=== PATIENT | female | born 1990 | race Two or more races ===

== ENCOUNTER 2018-01-28 14:32 | Inpatient (IN) | payer OTHER ==
[2018-03-02] MEDS ORDERED: LIDOCAINE 1% (MPF) 30 ML INJ INJ (05:30)
[2018-03-02] MEDS ORDERED: IBUPROFEN 600 MG TAB PO (05:30)
[2018-03-02] MEDS ORDERED: BUTORPHANOL 2 MG INJ IV (05:30)
[2018-03-02] MEDS ORDERED: METHYLERGONOVINE 0.2 MG INJ IM (05:30)
[2018-03-02] MEDS ORDERED: CARBOPROST 250 MCG INJ IM (05:30)
[2018-03-02] MEDS ORDERED: OXYTOCIN 30 UNITS/LR 500 ML IV ×2 (05:30)
[2018-03-02] MEDS ORDERED: MISOPROSTOL 200 MCG TAB PR (05:30)
[2018-03-02 06:57] LABS: ADD MAN DIFF? NO
[2018-03-02 07:00] LABS: BASOPHILS % 0.3 % (0.0-2.0); EOSINOPHILS # 0.1 10^3/ul (0.0-0.5); EOSINOPHILS % 1.3 % (0.0-7.0); HEMATOCRIT 33.6 % (37.0-47.0); HEMOGLOBIN 11.3 g/dl (12.0-16.0); LYMPHOCYTES # 2.9 10^3/ul (0.8-2.9); LYMPHOCYTES % 29.6 % (15.0-51.0); MEAN CORPUSCULAR HEMOGLOBIN 30.6 pg (29.0-33.0); MEAN CORPUSCULAR HGB CONC 33.6 g/dl (32.0-37.0); MEAN CORPUSCULAR VOLUME 91.1 fl (82.0-101.0); MEAN PLATELET VOLUME 11.8 fl (7.4-10.4); MONOCYTE # 0.7 10^3/ul (0.3-0.9); MONOCYTES % 6.7 % (0.0-11.0); NEUTROPHILS % 61.3 % (39.0-77.0); PLATELET COUNT 149 10^3/UL (140-415); RED BLOOD COUNT 3.69 10^6/ul (4.20-5.40); RED CELL DISTRIBUTION WIDTH 13.4 % (11.5-14.5)
[2018-03-02 07:00] LABS: WHITE BLOOD COUNT 9.8 10^3/ul (4.8-10.8)
[2018-03-02] MEDS: LACTATED RINGER'S 1,000 ML IV (07:28)
[2018-03-02] MEDS: LACTATED RINGER'S 1,000 ML IV* ×3 (07:28→18:59)
[2018-03-02 07:49] LABS: INR 0.91; PROTIME 12.3 Sec (11.9-14.9)
[2018-03-02 07:50] LABS: PARTIAL THROMBOPLASTIN TIME 25.8 Sec (25.0-35.0)
[2018-03-02] MEDS ORDERED: HYDROmorphONE 0.5 MG/0.5 ML SYG IV ×2 (08:30)
[2018-03-02] MEDS ORDERED: NALOXONE (0.4 MG/ML) INJ IV (08:30)
[2018-03-02] MEDS ORDERED: DIPHENHYDRAMINE 50 MG INJ IV (08:30)
[2018-03-02] MEDS ORDERED: KETOROLAC 30 MG INJ IV (08:30)
[2018-03-02] MEDS ORDERED: ZOLPIDEM 5 MG TAB PO (08:30)
[2018-03-02 08:33] LABS: HEPATITIS B SURFACE ANTIGEN NEGATIVE (NEGATIVE)
[2018-03-02] MEDS: FENTAnyl 2MCG/ML-ROPIV 0.2% 100 ML BAG EPI ×2 (11:21→17:36)
[2018-03-02] MEDS: OXYTOCIN 30 UNITS/LR 500 ML IV (15:15)
[2018-03-02] MEDS: ONDANSETRON 4 MG INJ IV (19:06)
[2018-03-02] MEDS: MINERAL OIL LIGHT 10 ML VIAL TOP (21:30)
[2018-03-02 21:47] LABS: RAPID PLASMA REAGIN NONREACTIVE (NR)
[2018-03-03] MEDS ORDERED: LACTATED RINGER'S 1,000 ML IV* (00:33)
[2018-03-03] MEDS: OXYTOCIN 30 UNITS/LR 500 ML IV ×2 (00:55→08:00)
[2018-03-03] MEDS ORDERED: METHYLERGONOVINE 0.2 MG INJ IM (01:00)
[2018-03-03] MEDS ORDERED: OXYTOCIN 30 UNITS/LR 500 ML IV (01:00)
[2018-03-03] MEDS ORDERED: CARBOPROST 250 MCG INJ IM (01:00)
[2018-03-03] MEDS ORDERED: MISOPROSTOL 200 MCG TAB PR (01:00)
[2018-03-03] MEDS: HYDROCODONE/APAP (5/325) TAB PO ×2 (01:27→04:59)
[2018-03-03] MEDS: BENZOCAINE 20% 56 ML SPRAY TOP (02:09)
[2018-03-03] MEDS: IBUPROFEN 600 MG TAB PO ×3 (06:25→17:38)
[2018-03-04] MEDS: IBUPROFEN 600 MG TAB PO ×3 (00:11→12:13)
[2018-03-04] MEDS: HYDROCODONE/APAP (5/325) TAB PO (02:32)
[2018-03-04 08:25] LABS: ADD MAN DIFF? NO
[2018-03-04 08:38] LABS: WHITE BLOOD COUNT 10.8 10^3/ul (4.8-10.8)
[2018-03-04 08:38] LABS: BASOPHIL # 0.1 10^3/ul (0.0-0.1); BASOPHILS % 0.5 % (0.0-2.0); EOSINOPHILS # 0.2 10^3/ul (0.0-0.5); HEMATOCRIT 30.7 % (37.0-47.0); HEMOGLOBIN 10.2 g/dl (12.0-16.0); LYMPHOCYTES % 27.6 % (15.0-51.0); MEAN CORPUSCULAR HGB CONC 33.2 g/dl (32.0-37.0); MEAN CORPUSCULAR VOLUME 93.3 fl (82.0-101.0); MEAN PLATELET VOLUME 11.9 fl (7.4-10.4); MONOCYTE # 0.7 10^3/ul (0.3-0.9); MONOCYTES % 6.4 % (0.0-11.0); NEUTROPHIL # 6.8 10^3/ul (1.6-7.5); NEUTROPHILS % 62.8 % (39.0-77.0); PLATELET COUNT 162 10^3/UL (140-415); RED BLOOD COUNT 3.29 10^6/ul (4.20-5.40); RED CELL DISTRIBUTION WIDTH 13.9 % (11.5-14.5)
[2018-03-04] MEDS: LANOLIN 7 GM TUBE TOP (08:56)
[2018-03-04] MEDS: BENZOCAINE 20% 56 ML SPRAY TOP (12:13)
[2018-03-05] MEDS ORDERED: DIPHTH/TET/ACEL PERTUSS (ADULT) 0.5 ML VIAL IM* (09:00)
== END 2018-03-04 12:30 | disposition home or self-care (01) | DRG 775 ==
LOC: OBT 14:32 → PP1 03-03 01:42 → L-D 03-02 04:30 → OBT 03-02 05:30 → L-D 03-02 05:30
PROVIDERS: Obstetrics & Gynecology
PROC: 10D07Z6 Extraction of Products of Conception, Vacuum, Via Natural or Artificial Opening (ICD-10-PCS; principal; 2018-03-03)
PROC: 0W8NXZZ Division of Female Perineum, External Approach (ICD-10-PCS; 2018-03-03)
DX: O76 Abnormality in fetal heart rate and rhythm complicating labor and delivery (principal); Z3A.40 40 weeks gestation of pregnancy; Z37.0 Single live birth
CPT/HCPCS: 62319; 85025; 85610; 85730; 86592; 86850; 86900; 86901; 87340; 99464